=== PATIENT | female | born 1960 | race Hispanic/Latino ===

== ENCOUNTER 2020-02-17 10:30 | Emergency (ER) | payer SELFPAY ==
[2020-02-17] MEDS ORDERED: METOPROLOL TART50 MG PO (10:52)
[2020-02-17] MEDS ORDERED: HYZAAR1 TA1 PO (10:57)
[2020-02-17 11:05] VITALS: BP 128/67
== END 2020-02-17 11:05 | disposition home or self-care (01) | DRG 951 ==
LOC: ED 10:30
DX: Z76.0 Encounter for issue of repeat prescription (principal); I10 Essential (primary) hypertension

== ENCOUNTER 2020-09-02 10:06 | Emergency (ER) | payer SELFPAY ==
[~2020-09-02] VITALS: Ht 157.5 cm; Wt 75.0 kg
[~2020-09-02 10:06] MED LIST: HYZAAR1 TA1 PO; METOPROLOL TART50 MG PO
[2020-09-02 11:00] VITALS: BP 182/84
== END 2020-09-02 11:20 | disposition home or self-care (01) | DRG 951 ==
LOC: ED 10:06
DX: Z76.0 Encounter for issue of repeat prescription (principal); I10 Essential (primary) hypertension